=== PATIENT | female | born 1975 | race Caucasian/White ===

== ENCOUNTER 2016-11-14 13:43 | Emergency (ER) | payer BC ==
[~2016-11-14] VITALS: Ht 152.4 cm; Wt 60.3 kg
[2016-11-14 15:28] LABS: BASOPHIL % 0.3 % (0-2)
[2016-11-14 15:31] LABS: PLATELET COUNT 428 x10^3mcL (130-400); RED CELL DISTRIBUTION WIDTH 16.6 % (11.5-14.5)
[2016-11-14 15:43] LABS: CALCIUM 9.1 mg/dL (8.5-10.1); CARBON DIOXIDE 27.3 mmol/L (21-32); CHLORIDE SERUM 101 mmol/L (98-107); CREATININE SERUM 0.6 mg/dL (0.6-1.0); GFR1 > 60 mL/min; GLUCOSE SERUM 100 mg/dL (74-106); POTASSIUM SERUM 3.6 mmol/L (3.5-5.1); SODIUM SERUM 139 mmol/L (136-145)
[2016-11-14 15:48] LABS: ALBUMIN 4.5 g/dL (3.4-5.0); ALKALINE PHOSPHATASE 87 U/L (46-116); ALT/SGPT 25 U/L (14-59); AST/SGOT 15 U/L (15-37); BILIRUBIN TOTAL 0.3 mg/dL (0.20-1.00); HDL CHOLESTEROL 59 mg/dL (40-60); LIPASE 82 IU/L (73-393); TRIGLYCERIDES 93 mg/dL (<150)
[2016-11-14 15:49] LABS: CHOLESTEROL 243 mg/dL (<200); CHOLESTEROL/HDL RATIO 4.1; TOTAL PROTEIN, SERUM 8.6 g/dL (6.4-8.2)
[2016-11-14 15:53] LABS: FREE T4 1.04 ng/dL (0.76-1.46); FREE THYROXINE INDEX 2.6 ug/dL (1.4-4.5); T4(THYROXINE) 7.7 ug/dL (4.7-13.3)
[2016-11-14 16:02] LABS: T3 TOTAL 1.06 ng/mL
[2016-11-14 16:41] VITALS: BP 116/67
== END 2016-11-14 16:41 | disposition home or self-care (01) ==
LOC: ED 13:43
PROVIDERS: Specialist
DX: F41.9 Anxiety disorder, unspecified (principal); M50.30 Other cervical disc degeneration, unspecified cervical region
CPT/HCPCS: 83880; 84439; J2060; Q0092